=== PATIENT | female | born 1945 | race Caucasian/White ===

== ENCOUNTER → 2018-09-26 | Outpatient (CLI) | payer MEDICARE ==
--- NOTE | 2018-09-26 11:33 | MRI ---
Study: MRI of the Left Shoulder. Indication: LEFT SHOULDER PAIN Technique: Multiplanar, multi sequence MRI of the left shoulder was obtained without intravenous contrast. Comparison: None. Findings: Mild to moderate AC joint osteoarthritis. Type I acromion with mild lateral downsloping. Trace subacromial/subdeltoid bursal fluid. Supraspinatus and infraspinatus tendinosis with scattered interstitial fissuring of both tendon insertions and most pronounced at the anterior supraspinatus tendon insertion where there is a focal low-grade interstitial tear measuring 8 mm AP by 3 mm transverse and involving up to 25% of expected tendon thickness. No full-thickness tear. Subscapularis tendinosis with high-grade articular tearing superior leading edge. Mild atrophy and grade 1/2 fatty infiltration rotator cuff musculature. Intracapsular long head biceps tendinosis. Circumferential labral truncation/degeneration. Severe glenohumeral joint osteoarthritis with grade 4 chondral loss of the majority joint as well as patchy cortical remodeling and subchondral marrow change. Moderate inferior humeral head osteophyte formation. Moderate joint effusion. Fluid distention superior subscapular recess with several loose bodies measuring up to 12 mm. Loose bodies within a fluid distended long head biceps tendon sheath noted as well. No acute fracture. Impression: Supraspinatus and infraspinatus tendinosis with scattered interstitial fissuring throughout both tendon insertions and most pronounced at the anterior supraspinatus tendon insertion where there is a low-grade interstitial tear. Subscapularis tendinosis with high-grade articular tearing superiorly. Mild atrophy and grade 1/2 fatty infiltration rotator cuff musculature. Intracapsular long head biceps tendinosis. Circumferential labral truncation and degeneration. Severe glenohumeral joint osteoarthritis with a moderate-sized joint effusion and multiple loose bodies. Mild to moderate AC joint osteoarthritis. Electronically signed by: Tru Spring MD 09/26/2018 11:31 AM CDT
== END ==
LOC: MRI 10:00
DX: M75.92 Shoulder lesion, unspecified, left shoulder (principal); S43.492A Other sprain of left shoulder joint, initial encounter; M19.012 Primary osteoarthritis, left shoulder

== ENCOUNTER → 2019-08-14 | Outpatient (CLI) | payer MEDICARE ==
--- NOTE | 2019-08-14 11:16 | RAD ---
EXAM: Facial Bones CLINICAL INDICATION: Trauma, facial contusion COMPARISON: There is no previous study for comparison. FINDINGS: 3 views of the facial bones reveal no evidence of any fracture. The osseous structures appear intact and unremarkable. There are no radiopaque foreign bodies. IMPRESSION: Negative facial bone radiographs. Electronically signed by: Dipesh Vernon MD 08/14/2019 11:15 AM CDT
== END ==
LOC: RAD 10:45
PROVIDERS: ATTEND Nurse Practitioner Family
DX: S00.83XA Contusion of other part of head, initial encounter (principal)